=== PATIENT | male | born 1990 | race Caucasian/White ===

== ENCOUNTER 2020-12-04 00:07 | Emergency (ER) | payer OTHER ==
[~2020-12-04] VITALS: Ht 175.3 cm; Wt 72.0 kg
[2020-12-04] MEDS ORDERED: IBUPROFEN600 MG PO (01:27)
[2020-12-04 02:05] VITALS: BP 119/69
== END 2020-12-04 02:05 | disposition home or self-care (01) | DRG 556 ==
LOC: ED 00:07
DX: M79.645 Pain in left finger(s) (principal); R93.6 Abnormal findings on diagnostic imaging of limbs

== ENCOUNTER 2021-01-06 00:26 | Emergency (ER) | payer OTHER ==
[~2021-01-06] VITALS: Ht 175.3 cm; Wt 77.0 kg
[~2021-01-06 00:26] MED LIST: IBUPROFEN600 MG PO
[2021-01-06 01:19] VITALS: BP 137/73
== END 2021-01-06 01:25 | disposition home or self-care (01) | DRG 159 ==
LOC: ED 00:26
PROC: 0CQ0XZZ Repair Upper Lip, External Approach (ICD-10-PCS; principal; 2021-01-06)
DX: S01.511A Laceration without foreign body of lip, initial encounter (principal); Y04.0XXA Assault by unarmed brawl or fight, initial encounter; Y92.89 Other specified places as the place of occurrence of the external cause